=== PATIENT | male | born 1970 | race Caucasian/White ===

== ENCOUNTER 2019-10-08 06:54 | Day surgery (SDC) | payer OTHER ==
[~2019-10-08] VITALS: Ht 154.9 cm; Wt 45.5 kg
[~2019-10-08 06:54] MED LIST: ASCO500 PO; CALC-888 PO; CARB200T6 PO; DENO60DI SQ; ESCI20TA PO; FERR-89 PO; LACO100 PO; LACT30L PO; LEVE500T53 PO; LEVO330T6 PO; MIRT-92 PO; NALT50TA6 PO; RINGERS SOLUTION,LACTATED 1,000 ML IV ONE; SIMV-259 PO
[2019-10-08] MEDS ORDERED: ROCURONIUM BROMIDE 10 MG/ML 5 ML VIAL IVP ONE (06:55)
[2019-10-08] MEDS ORDERED: PROPOFOL 1% 20 ML VIAL IVP ONE (06:55)
[2019-10-08] MEDS ORDERED: LIDOCAINE/PF 2% 5 ML SYRINGE IVP ONE (06:55)
[2019-10-08] MEDS ORDERED: AMPICILLIN SODIUM 1 GM/VIAL ONE (06:56)
[2019-10-08] MEDS ORDERED: SODIUM CHLORIDE 0.9% 100 ML ONE (06:57)
[2019-10-08] MEDS ORDERED: RINGERS SOLUTION,LACTATED 1,000 ML IV ONE (07:00)
[2019-10-08] MEDS ORDERED: MIDAZOLAM HCL 5 MG/ML VIAL ONE (11:38)
[2019-10-08] MEDS ORDERED: KETAMINE HCL 50 MG/ML 10 ML VIAL IVP ONE (12:00)
[2019-10-08] MEDS ORDERED: MIDAZOLAM HCL 2 MG/2 ML VIAL IVP ONE (12:00)
[2019-10-08] MEDS ORDERED: FentaNYL CITRATE-PF 100 MCG/2 ML VIAL IVP ONE (12:00)
== END 2019-10-08 15:00 | disposition home or self-care (01) ==
LOC: SURGERY 06:54
PROVIDERS: ATTEND Dentist General Practice
DX: K02.9 Dental caries, unspecified (principal); K05.30 Chronic periodontitis, unspecified; E78.5 Hyperlipidemia, unspecified; G40.909 Epilepsy, unspecified, not intractable, without status epilepticus; D64.9 Anemia, unspecified; F41.9 Anxiety disorder, unspecified; K21.9 Gastro-esophageal reflux disease without esophagitis; E66.3 Overweight; Z68.1 Body mass index [BMI] 19.9 or less, adult; Z88.1 Allergy status to other antibiotic agents; Z88.8 Allergy status to other drugs, medicaments and biological substances; Z88.5 Allergy status to narcotic agent
CPT/HCPCS: 41899; J0290; J2250 ×2; J2704; J3010; J3490 ×3; J7050; J7120

== ENCOUNTER 2024-03-12 06:34 | Day surgery (SDC) | payer OTHER, MEDICARE ==
[~2024-03-12 06:34] MED LIST changes: -CALC-888 PO; +CALC-992 PO; +CARB-92 PO; -CARB200T6 PO; +DEXAMETHASONE SOD PHOS 4 MG/ML VIAL ONE; -ESCI20TA PO; +ESCI20TA87 PO; -FERR-89 PO; +FERR325T27 PO; +LACT10SO10 PO; -LACT30L PO; +LEVE-71 PO; -LEVE500T53 PO; +LIDOCAINE/PF 2% 5 ML VIAL ONE; +MIRT-89 PO; -MIRT-92 PO; +NALT50TA33 PO; -NALT50TA6 PO; +ONDANSETRON HCL 4 MG/2 ML VIAL ONE; +PROPOFOL 1% 20 ML VIAL IVP ONE; +ROCURONIUM BROMIDE 10 MG/ML 5 ML VIAL ONE; +SUGAMMADEX SODIUM 200 MG/2 ML VIAL IVP ONE
[2024-03-12] MEDS ORDERED: RINGERS SOLUTION,LACTATED 1,000 ML IV ONE (07:00)
[2024-03-12 07:26] LABS: BASOPHILS % (AUTO) 0.5 % (0.0-2.0); EOSINOPHILS % (AUTO) 2.4 % (1.0-6.0); HEMATOCRIT 39.4 % (41-53); LYMPHOCYTES # (AUTO) 1.8 K/uL (1.0-4.8); LYMPHOCYTES % (AUTO) 30.3 % (22.0-44.0); MEAN CORPUSCULAR HEMOGLOBIN 32.5 pg (26.0-34.0); MEAN CORPUSCULAR HGB CONC 33.1 G/dL (31.0-37.0); MEAN CORPUSCULAR VOLUME 98 fL (80-100); MONOCYTES # (AUTO) 0.4 K/uL (0.1-1.0); MONOCYTES % (AUTO) 6.1 % (2.0-9.0); NEUTROPHILS # (AUTO) 3.7 K/uL (1.8-7.7); NEUTROPHILS % (AUTO) 60.7 % (40.0-70.0); PLATELET COUNT (AUTO) 201 K/uL (150-450); RED BLOOD CELL COUNT(AUTO) 4.01 MIL/uL (4.50-5.90); RED CELL DISTRIBUTION WIDTH 12.7 % (11.5-14.5)
[2024-03-12 07:38] LABS: ANION GAP 4 mmol/L (8-16); CALCIUM, TOTAL 8.6 mg/dL (8.8-10.5); CARBON DIOXIDE 31 mmol/L (22-29); CHLORIDE 107 mmol/L (98-107); CREATININE 0.74 mg/dL (0.60-1.30); GLOMERULAR FILTR. RATE CALC > 60 mL/min (>60); GLUCOSE,RANDOM 103 mg/dL (70-110); POTASSIUM 4.1 mmol/L (3.5-5.1); SODIUM SERUM 142 mmol/L (136-145); UREA NITROGEN, BLOOD 26 mg/dL (7-18)
[2024-03-12 07:41] LABS: INR 1.1 (0.9-1.1); PROTHROMBIN TIME 11.6 SEC (9.4-11.6)
[2024-03-12 07:45] LABS: ALANINE AMINOTRANSFERASE 27 U/L (12-78); ALBUMIN 3.1 g/dL (3.4-5.0); ALKALINE PHOSPHATASE 58 U/L (46-116); ASPARTATE AMINOTRANSFERASE 22 U/L (15-37); BILIRUBIN,TOTAL 0.2 mg/dL (0.1-1.0)
[2024-03-12] MEDS ORDERED: AMPICILLIN SODIUM 2 GM/NS 100 ML IV ONE (07:50)
[2024-03-12] MEDS: BUPIVACAINE 0.25%/EPI 1:200,000/PF 10 ML VIAL ONE (12:40)
== END 2024-03-12 14:15 | disposition home or self-care (01) ==
LOC: SURGERY 06:34
PROVIDERS: ATTEND Dentist General Practice
DX: K05.6 Periodontal disease, unspecified (principal); K02.9 Dental caries, unspecified; R05.9 Cough, unspecified; K21.9 Gastro-esophageal reflux disease without esophagitis; F32.A Depression, unspecified; E78.00 Pure hypercholesterolemia, unspecified; D64.9 Anemia, unspecified; M81.0 Age-related osteoporosis without current pathological fracture; R63.0 Anorexia; B19.10 Unspecified viral hepatitis B without hepatic coma; Z98.890 Other specified postprocedural states; Z98.818 Other dental procedure status; Z88.5 Allergy status to narcotic agent; Z88.8 Allergy status to other drugs, medicaments and biological substances
CPT/HCPCS: 80053; 85025; 85610; 85730; 36415; 93005; 71045; 41899; J0290; J3490 ×3; J2704; J1100; J2405; Q9967; J7120

== ENCOUNTER 2025-07-01 06:13 | Day surgery (SDC) | payer OTHER, MEDICARE ==
[~2025-07-01] VITALS: Ht 152.4 cm; Wt 53.2 kg
[~2025-07-01 06:13] MED LIST changes: -DEXAMETHASONE SOD PHOS 4 MG/ML VIAL ONE; -LACO100 PO; +LACO100T14 PO; -LIDOCAINE/PF 2% 5 ML VIAL ONE; -ONDANSETRON HCL 4 MG/2 ML VIAL ONE; -PROPOFOL 1% 20 ML VIAL IVP ONE; -RINGERS SOLUTION,LACTATED 1,000 ML IV ONE; -ROCURONIUM BROMIDE 10 MG/ML 5 ML VIAL ONE; -SUGAMMADEX SODIUM 200 MG/2 ML VIAL IVP ONE
[2025-07-01 07:32] LABS: PLATELET COUNT (AUTO) 206 K/uL (150-450); RED BLOOD CELL COUNT(AUTO) 4.36 MIL/uL (4.50-5.90); RED CELL DISTRIBUTION WIDTH 13.0 % (11.5-14.5); WHITE BLOOD COUNT (AUTO) 6.3 K/uL (4.5-11.0)
[2025-07-01] MEDS ORDERED: AMPICILLIN SODIUM 2 GM/NS 100 ML IV ONE (07:34)
[2025-07-01 07:49] LABS: CALCIUM, TOTAL 8.4 mg/dL (8.8-10.5); CREATININE 0.81 mg/dL (0.60-1.30); GLOMERULAR FILTR. RATE CALC > 60 mL/min (>60); GLUCOSE,RANDOM 100 mg/dL (70-110); SODIUM SERUM 143 mmol/L (136-145); UREA NITROGEN, BLOOD 28 mg/dL (7-18)
[2025-07-01] MEDS ORDERED: RINGERS SOLUTION,LACTATED 1,000 ML IV ONE (07:52)
[2025-07-01 07:54] LABS: ASPARTATE AMINOTRANSFERASE 23 U/L (15-37); TOTAL PROTEIN, SERUM 7.5 g/dL (6.4-8.2)
[2025-07-01] MEDS: RINGERS SOLUTION,LACTATED 1,000 ML IV ONE (09:43)
[2025-07-01] MEDS ORDERED: KETAMINE HCL 50 MG/ML 10 ML VIAL ONE (12:00)
[2025-07-01] MEDS ORDERED: PROPOFOL 1% 20 ML VIAL IVP ONE (17:52)
[2025-07-01] MEDS ORDERED: DEXAMETHASONE SOD PHOS 4 MG/ML VIAL ONE (17:52)
[2025-07-01] MEDS ORDERED: ONDANSETRON HCL 4 MG/2 ML VIAL ONE (17:52)
[2025-07-01] MEDS ORDERED: LIDOCAINE/PF 2% 5 ML VIAL ONE (17:52)
[2025-07-01] MEDS ORDERED: ROCURONIUM BROMIDE 10 MG/ML 5 ML VIAL ONE (17:52)
== END 2025-07-01 12:00 | disposition home or self-care (01) ==
LOC: SDS 06:13
PROVIDERS: ATTEND Dentist General Practice
DX: K05.20 Aggressive periodontitis, unspecified (principal); K03.6 Deposits [accretions] on teeth; E78.00 Pure hypercholesterolemia, unspecified; K21.9 Gastro-esophageal reflux disease without esophagitis; F32.A Depression, unspecified; G80.9 Cerebral palsy, unspecified; M81.0 Age-related osteoporosis without current pathological fracture; Z79.899 Other long term (current) drug therapy
CPT/HCPCS: 41899; 71045; 80053; 85025; 85610; 85730; 36415; 93005; J0290; J2704; J1100; J3490 ×3; J2405; J7120